=== PATIENT | female | born 1955 | race Caucasian/White ===

== ENCOUNTER → 2016-06-29 | Outpatient (CLI) | payer MEDICAID ==
--- NOTE | 2016-06-30 09:25 | MM ---
Reason for exam: screening (asymptomatic). Last mammogram was performed 1 year ago. History: Patient is postmenopausal and is nulliparous. Benign US right guided VAD of the right breast, September 25, 2008. Benign left US cyst aspiration of the left breast, October 15, 2006. Took hormonal contraceptives for 2 years beginning at age 23. Took estrogen for 5 years beginning at age 51. Took progesterone for 5 years beginning at age 51. Physical Findings: A clinical breast exam by your physician is recommended on an annual basis and results should be correlated with mammographic findings. MG Screening Mammo w CAD Bilateral CC and MLO view(s) were taken. Prior study comparison: June 24, 2015, bilateral MG screening mammo w CAD. June 15, 2014, bilateral MG screening mammo w CAD. There are scattered fibroglandular densities. Finding #1: There is a 9 mm equal density (isodense), obscured mass in the central position of the left breast. Finding #2: There are typically benign calcifications in the left breast. Previous mammotome biopsy in the right and left breast. ASSESSMENT: Incomplete: need additional imaging evaluation, BI-RAD 0 RECOMMENDATION: Special view mammogram of the left breast. If lesion persists on supplemental views, image directed ultrasound is recommended. [facility] will attempt to contact patient to return for supplemental views and ultrasound if indicated.
== END | disposition home or self-care (01) ==
LOC: RADMAMWWP 11:48
PROVIDERS: ATTEND Family Medicine
DX: Z12.31 Encounter for screening mammogram for malignant neoplasm of breast (principal)

== ENCOUNTER → 2016-07-01 | Outpatient (CLI) | payer MEDICAID ==
--- NOTE | 2016-07-01 14:49 | MM ---
Reason for exam: additional evaluation requested from abnormal screening. Last mammogram was performed less than 1 month ago. History: Patient is postmenopausal and is nulliparous. Benign US right guided VAD of the right breast, September 25, 2008. Benign left US cyst aspiration of the left breast, October 15, 2006. Took hormonal contraceptives for 2 years beginning at age 23. Took estrogen for 5 years beginning at age 51. Took progesterone for 5 years beginning at age 51. Physical Findings: Nurse did not find any significant physical abnormalities on exam. MG Work Up Mamm w CAD LT CC and MLO view(s) were taken of the left breast. Prior study comparison: June 29, 2016, bilateral MG screening mammo w CAD. June 24, 2015, bilateral MG screening mammo w CAD. The breast tissue is heterogeneously dense. This may lower the sensitivity of mammography. Previous mammotome biopsy in the left breast. Nodular density in the left breast is improved. These results were verbally communicated with the patient and result sheet given to the patient on 07/01/16. ASSESSMENT: Benign, BI-RAD 2 RECOMMENDATION: Return to routine screening mammogram schedule for both breasts.
== END ==
LOC: RADMAMWWP 14:02
PROVIDERS: ATTEND Family Medicine
DX: R92.8 Other abnormal and inconclusive findings on diagnostic imaging of breast (principal)

== ENCOUNTER → 2017-07-06 | Outpatient (CLI) | payer BC, MEDICAID ==
--- NOTE | 2017-07-06 15:58 | BD ---
EXAMINATION TYPE: MG DEXA axial skeleton. DATE OF EXAM: 07/06/2017 COMPARISON: NONE CLINICAL HISTORY: 61 YR OLD FEMALE: ICD-10 CODE: Z78.0 POST MENOPAUSAL W/O HRT Height: 61 Weight: 142 FRAX RISK QUESTIONS: Alcohol (3 or more units per day): NO Family History (Parent hip fracture): NO Glucocorticoids (More than 3mos): NO History of Fracture in Adulthood: YES Secondary Osteoporosis: NO 1. Type 1 Diabetes: NO 2. Hyperthyroidism: NO 3. Menopause before 45: NO 4. Malnutrition: NO 5. Chronic liver disease: NO Rheumatoid Arthritis: NO Current Tobacco Use: NO RISK FACTORS HISTORY OF: CLAVICLE FX AT AGE 58 Family History of Osteoporosis: YES, HER MOTHER Active: YES Diet low in dairy products/other sources of calcium: YES, A BIT Postmenopausal woman: YES AT AGE 48 Take estrogen and/or progesterone medications: NONE NOW Hyperparathyroidism: NO Adrenal Insufficiency: NO MEDICATIONS: Additional Medications: BP MEDS, TUMS PRN, STATIN FOR CHOLESTEROL, MULTIVITAMIN WITH VIT D Additional History: HYPERTENSION, HIGH CHOLESTEROL EXAM MEASUREMENTS: Bone mineral densitometry was performed using the [employer] System. Bone mineral density as measured about the Lumbar spine is: ----- L1-L4(G/cm2): 1.073 T Score Values are as follows: ----- L1: -0.9 ----- L2: -1.2 ----- L3: -0.1 ----- L4: -1.4 ----- L1-L4: -0.9 Bone mineral density THIS IS HER FIRST BONE DENSITY TEST......BASELINE STUDY Bone mineral density about the R hip (g/cm2): 0.845 Bone mineral density about the L hip (g/cm2): 0.851 T Score values are as follows: -----R Neck: -1.7 -----L Neck: -1.7 -----R Total: -1.3 -----L Total: -1.2 Bone mineral density BASELINE STUDY FRAX%S: THERE IS A 14.9% CHANCE OF A MAJOR OSTEOPOROTIC FX AND A 1.6% FOR HIP FX.....PROBABILITY O F FX IN 10 YRS TIME IMPRESSION: Osteopenia (T Score between -2.5 and -1). There is slightly increased risk of fracture and the patient may be considered for treatment. Re-Screen 2-5 years. NOTE: T-SCORE=SD OF THE YOUNG ADULT MEAN.
--- NOTE | 2017-07-07 09:15 | MM ---
Reason for exam: screening (asymptomatic). Last mammogram was performed 1 year ago. History: Patient is postmenopausal and is nulliparous. Benign US right guided VAD of the right breast, September 25, 2008. Benign left US cyst aspiration of the left breast, October 15, 2006. Took hormonal contraceptives for 2 years beginning at age 23. Took estrogen for 5 years beginning at age 51. Took progesterone for 5 years beginning at age 51. Physical Findings: A clinical breast exam by your physician is recommended on an annual basis and results should be correlated with mammographic findings. MG Screening Mammo w CAD Bilateral CC and MLO view(s) were taken. Prior study comparison: July 01, 2016, left breast MG work up mamm w CAD LT. June 29, 2016, bilateral MG screening mammo w CAD. There are scattered fibroglandular densities. Previous mammotome biopsy in the right and left breast. No significant changes when compared with prior studies. ASSESSMENT: Benign, BI-RAD 2 RECOMMENDATION: Routine screening mammogram of both breasts in 1 year.
== END | disposition home or self-care (01) ==
LOC: RADMAMWWP 13:55
PROVIDERS: ATTEND Family Medicine
DX: Z12.31 Encounter for screening mammogram for malignant neoplasm of breast (principal); M85.80 Other specified disorders of bone density and structure, unspecified site; Z78.0 Asymptomatic menopausal state
CPT/HCPCS: 77067; 77080

== ENCOUNTER → 2018-07-07 | Outpatient (CLI) | payer BC ==
--- NOTE | 2018-07-08 11:10 | MM ---
Reason for exam: screening (asymptomatic). Last mammogram was performed 1 year ago. History: Patient is postmenopausal and is nulliparous. Benign US right guided VAD of the right breast, September 25, 2008. Benign left US cyst aspiration of the left breast, October 15, 2006. Took hormonal contraceptives for 2 years beginning at age 23. Took estrogen for 5 years beginning at age 51. Took progesterone for 5 years beginning at age 51. Physical Findings: A clinical breast exam by your physician is recommended on an annual basis and results should be correlated with mammographic findings. MG Screening Mammo w CAD Bilateral CC and MLO view(s) were taken. Prior study comparison: July 06, 2017, bilateral MG screening mammo w CAD. July 01, 2016, left breast MG work up mamm w CAD LT. There are scattered fibroglandular densities. No significant changes when compared with prior studies. ASSESSMENT: Benign, BI-RAD 2 RECOMMENDATION: Routine screening mammogram of both breasts in 1 year.
== END ==
LOC: RADMAMWWP 10:49
PROVIDERS: ATTEND Family Medicine
DX: Z12.31 Encounter for screening mammogram for malignant neoplasm of breast (principal)
CPT/HCPCS: 77067

== ENCOUNTER → 2020-01-03 | Outpatient (CLI) | payer BC ==
--- NOTE | 2020-01-05 10:33 | MM ---
Reason for exam: screening (asymptomatic). Last mammogram was performed 1 year and 6 months ago. History: Patient is postmenopausal and is nulliparous. Benign US right guided VAD of the right breast, September 25, 2008. Benign left US cyst aspiration of the left breast, October 15, 2006. Took hormonal contraceptives for 2 years beginning at age 23. Took estrogen for 5 years beginning at age 51. Took progesterone for 5 years beginning at age 51. Physical Findings: A clinical breast exam by your physician is recommended on an annual basis and results should be correlated with mammographic findings. MG Screening Mammo w CAD Bilateral CC and MLO view(s) were taken. Prior study comparison: July 07, 2018, bilateral MG screening mammo w CAD. July 06, 2017, bilateral MG screening mammo w CAD. Previous mammotome biopsy in the right and left breast. No significant changes when compared with prior studies. ASSESSMENT: Benign, BI-RAD 2 RECOMMENDATION: Routine screening mammogram of both breasts in 1 year.
== END | disposition home or self-care (01) ==
LOC: RADMAMWWP 16:33
PROVIDERS: ATTEND Family Medicine
DX: Z12.31 Encounter for screening mammogram for malignant neoplasm of breast (principal)
CPT/HCPCS: 77067

== ENCOUNTER → 2021-01-21 | Outpatient (CLI) | payer BC ==
--- NOTE | 2021-01-22 10:30 | MM ---
Reason for exam: screening (asymptomatic). Last mammogram was performed 1 year and 1 month ago. History: Patient is postmenopausal and is nulliparous. Benign US right guided VAD of the right breast, September 25, 2008. Benign left US cyst aspiration of the left breast, October 15, 2006. Took hormonal contraceptives for 2 years beginning at age 23. Took estrogen for 6 years beginning at age 51. Took progesterone for 6 years beginning at age 51. Physical Findings: A clinical breast exam by your physician is recommended on an annual basis and results should be correlated with mammographic findings. MG Screening Mammo w CAD Bilateral CC and MLO view(s) were taken. Prior study comparison: January 03, 2020, bilateral MG screening mammo w CAD. July 07, 2018, bilateral MG screening mammo w CAD. The breast tissue is heterogeneously dense. This may lower the sensitivity of mammography. Benign appearing bilateral calcifications. Previous mammotome biopsy in the right and left breast. There is chronic nodularity in the right breast, stable. No significant changes when compared with prior studies. ASSESSMENT: Benign, BI-RAD 2 RECOMMENDATION: Routine screening mammogram of both breasts in 1 year.
== END | disposition home or self-care (01) ==
LOC: RADMAMWWP 10:11
PROVIDERS: ATTEND Family Medicine
DX: Z12.31 Encounter for screening mammogram for malignant neoplasm of breast (principal)
CPT/HCPCS: 77067

== ENCOUNTER → 2022-01-28 | Outpatient (CLI) | payer MEDICARE, OTHER ==
--- NOTE | 2022-01-29 08:36 | MM ---
Reason for Exam: Screening (asymptomatic). Last screening mammogram was performed 12 month(s) ago. Patient History: Menarche at age 13. Patient has no children. Postmenopausal. Estrogen for 6 years from age 51 until age 57. Progesterone for 6 years from age 51 until age 57. Hormonal Contraceptives for 2 years from age 23 until age 25. 09/25/2008, Benign Core Biopsy on the right side. 10/15/2006, Benign Cyst Aspiration on the left side. Risk Values: Fay 5 year model risk: 2.2%. NCI Lifetime model risk: 8.2%. Prior Study Comparison: 07/07/2018 Bilateral Screening Mammogram, [facility]. 01/03/2020 Bilateral Screening Mammogram, [facility]. 01/21/2021 Bilateral Screening Mammogram, [facility]. Tissue Density: The breast tissue is heterogeneously dense. This may lower the sensitivity of mammography. Findings: Analyzed By CAD. There is no suspicious group of microcalcifications or new suspicious mass in either breast. Benign-appearing bilateral calcifications. Previous mammotome biopsy in the right and left breasts. Stable chronic nodularity within the right breast. No significant change from prior exams. Overall Assessment: Benign, BI-RAD 2 Management: Screening Mammogram of both breasts in 1 year. A clinical breast exam by your physician is recommended on an annual basis and results should be correlated with mammographic findings. Electronically signed and approved by: Devonte Sweeney D.O.
== END | disposition home or self-care (01) ==
LOC: RADMAMWWP 13:37
PROVIDERS: ATTEND Family Medicine
DX: Z12.31 Encounter for screening mammogram for malignant neoplasm of breast (principal)
CPT/HCPCS: 77063; 77067

== ENCOUNTER → 2023-01-29 | Outpatient (CLI) | payer MEDICARE, OTHER ==
--- NOTE | 2023-01-29 13:22 | MM ---
Reason for Exam: Screening (asymptomatic). Last screening mammogram was performed 12 month(s) ago. Patient History: Menarche at age 13. Patient has no children. Postmenopausal. Estrogen for 6 years from age 51 until age 57. Progesterone for 6 years from age 51 until age 57. Hormonal Contraceptives for 2 years from age 23 until age 25. 09/25/2008, Benign Core Biopsy on the right side. 10/15/2006, Benign Cyst Aspiration on the left side. Risk Values: Fay 5 year model risk: 2.2%. NCI Lifetime model risk: 7.9%. Prior Study Comparison: 01/03/2020 Bilateral Screening Mammogram, [facility]. 01/21/2021 Bilateral Screening Mammogram, [facility]. 01/28/2022 Bilateral MG 3D screening mammo w/cad, [facility]. Tissue Density: The breast tissue is heterogeneously dense. This may lower the sensitivity of mammography. Findings: Analyzed By CAD. There is no suspicious group of microcalcifications or new suspicious mass in either breast. Benign-appearing bilateral calcifications. Previous mammotome biopsy in the right and left breasts. Stable chronic nodularity within the right breast. No significant change from prior exams. Overall Assessment: Benign, BI-RAD 2 Management: Screening Mammogram of both breasts in 1 year. A clinical breast exam by your physician is recommended on an annual basis and results should be correlated with mammographic findings. Note on Fay scores and lifetime risk: 1. A Fay score greater than 3% is considered moderate risk. If this is the case, consider specialist referral to assess eligibility for a risk reducing agent. If overall lifetime risk for the development of breast cancer is 20% or higher, the patient may qualify for future screening with alternating mammogram and breast MRI. Electronically signed and approved by: Devonte Sweeney D.O.
--- NOTE | 2023-01-29 14:13 | BD ---
EXAMINATION TYPE: Axial Bone Density DATE OF EXAM: 01/29/2023 CLINICAL HISTORY: 67 years old Female. ICD-10 CODE: Z78.0 ASYMPTOMATIC MENOPAUSAL Height: 5 ft 1/2 in Weight: 151 FRAX RISK QUESTIONS: Alcohol (3 or more units per day): no Family History (Parent hip fracture): no Glucocorticoids (More than 3mos): no (Ex: prednisone, prednisolone, methylprednisolone, dexamethasone, and hydrocortisone). History of Fracture in Adulthood: yes Secondary Osteoporosis: 1. Type 1 Diabetes: no 2. Hyperthyroidism: no 3. Menopause before 45: no 4. Malnutrition: no 5. Chronic liver disease: no Rheumatoid Arthritis: no Current Tobacco Use: no RISK FACTORS HISTORY OF: Surgery to Spine/Hip(right/left)/Wrist (right/left): no Family History of Osteoporosis: no Active: yes Diet low in dairy products/other sources of calcium: no Postmenopausal woman: yes Take estrogen and/or progesterone medications: none now Lost more than 2 inches in height since high school: no Frequent falls: no Poor Health: good Hyperparathyroidism: no Adrenal Insufficiency: no MEDICATIONS: Additional Medications: Atorvastatin, lisinopril Additional History: EXAM MEASUREMENTS: Bone mineral densitometry was performed using the [employer] System. Bone mineral density as measured about the Lumbar spine is: ----- L1-L4(G/cm2): 1.144 T Score Values are as follows: ----- L1: -1.3 ----- L2: 0.9 ----- L3: 0.8 ----- L4: -1.7 ----- L1-L4: -0.3 Z Score Values are as follows: ----- L1: 0.1 ----- L2: 2.4 ----- L3: 2.3 ----- L4: -0.2 ----- L1-L4: 1.2 Bone mineral density has: increased 6.6 % since study of: 2018 Bone mineral density about the R hip (g/cm2): 0.784 Bone mineral density about the L hip (g/cm2): 0.729 T Score values are as follows: -----R Neck: -1.8 -----L Neck: -2.2 -----R Total: -1.3 -----L Total: -1.1 Z Score values are as follows: -----R Neck: -0.4 -----L Neck: -0.8 -----R Total: -0.1 -----L Total: 0.0 Bone mineral density has: increased 0.9 % since study of: 2018 FRAX%s: The graph provided illustrates a 19.3 % chance for a major osteoporotic fx and a 3.6 % chance for the hips probability for fx in 10 years time. IMPRESSION: Osteopenia (T Score between -2.5 and -1). There is slightly increased risk of fracture and the patient may be considered for treatment. Re-Screen 2-5 years. NOTE: T-SCORE=SD OF THE YOUNG ADULT MEAN.
== END | disposition home or self-care (01) ==
LOC: RADMAMWWP 12:49
PROVIDERS: ATTEND Family Medicine
DX: Z12.31 Encounter for screening mammogram for malignant neoplasm of breast (principal); M85.89 Other specified disorders of bone density and structure, multiple sites; Z78.0 Asymptomatic menopausal state
CPT/HCPCS: 77063; 77067; 77080

== ENCOUNTER → 2024-01-31 | Outpatient (CLI) | payer MEDICARE, OTHER ==
--- NOTE | 2024-02-01 11:00 | MM ---
Reason for Exam: Screening (asymptomatic). Last screening mammogram was performed 12 month(s) ago. Patient History: Menarche at age 13. Patient has no children. Postmenopausal. Estrogen for 6 years from age 51 until age 57. Progesterone for 6 years from age 51 until age 57. Hormonal Contraceptives for 2 years from age 23 until age 25. 09/25/2008, Benign Core Biopsy on the right side. 10/15/2006, Benign Cyst Aspiration on the left side. Risk Values: Fay 5 year model risk: 2.2%. NCI Lifetime model risk: 7.6%. Prior Study Comparison: 01/21/2021 Bilateral Screening Mammogram, [facility]. 01/28/2022 Bilateral MG 3D screening mammo w/cad, [facility]. 01/29/2023 Bilateral MG 3D screening mammo w/cad, [facility]. Tissue Density: There are scattered areas of fibroglandular density. Findings: Analyzed By CAD. A microclip in either breast from prior biopsy. Asymmetric densities lateral right breast remain unchanged. There is no suspicious group of microcalcifications or new suspicious mass in either breast. Overall Assessment: Benign, BI-RAD 2 Management: Screening Mammogram of both breasts in 1 year. . Patient should continue monthly self-breast exams. A clinical breast exam by your physician is recommended on an annual basis. This exam should not preclude additional follow-up of suspicious palpable abnormalities. Note on Fay scores and lifetime risk: 1. A Fay score greater than 3% is considered moderate risk. If this is the case, consider specialist referral to assess eligibility for a risk reducing agent. 2. If overall lifetime risk for the development of breast cancer is 20% or higher, the patient may qualify for future screening with alternating mammogram and breast MRI. [facility], , 02/01/2024 10:57 AM. Electronically signed and approved by: Brannon Bartholomew M.D. Radiologist
== END | disposition home or self-care (01) ==
LOC: RADMAMWWP 16:03
PROVIDERS: ATTEND Family Medicine
CPT/HCPCS: 77063; 77067